=== PATIENT | female | born 1975 | race Hispanic/Latino ===

== ENCOUNTER 2021-03-23 21:08 | Emergency (ER) | payer SELFPAY ==
[2021-03-24 04:05] LABS: Bacteria,Urine 2+ /HPF (Negative); Bilirubin,Urine NEG (Negative); Blood,Urine SM (Negative); Color,Urine Yellow (Yellow); Mucus,Urine FEW /HPF; Urobilinogen,Urine < 2.0 mg/dL (<2.0)
[2021-03-24 04:15] LABS: Protein,Urine <15 mg/dL mg/dL (Negative); WBC,Urine < 1.0 /HPF (0.0-6.0)
[2021-03-24 06:36] VITALS: BP 121/53
--- NOTE | 2021-03-24 06:55 | Emergency Department Report ---
ED Female HPI - General Chief complaint: Urogenital-Female Stated complaint: POSS UTI Time Seen by Provider: 03/24/21 06:12 Source: patient Mode of arrival: Ambulatory Limitations: No Limitations - Related Data Previous Rx's Medication Instructions Recorded Last Taken Type Nitrofurantoin [place]/M-Cryst 100 mg PO Q12HR 7 Days #14 capsule 03/24/21 Unknown Rx [Macrobid CAP] Phenazopyridine [Pyridium] 100 mg PO TID #6 tab 03/24/21 Unknown Rx Allergies Allergy/AdvReac Type Severity Reaction Status Date / Time No Known Allergies Allergy Verified 03/24/21 01:13 ED Review of Systems ROS: Stated complaint: POSS UTI Other details as noted in HPI ED Past Medical Hx - Past Medical History Hx Diabetes: (gestational) - Surgical History Additional Surgical History: c section - Medications Home Medications: Home Medications Medication Instructions Recorded Confirmed Last Taken Type Nitrofurantoin [place]/M-Cryst 100 mg PO Q12HR 7 Days #14 capsule 03/24/21 Unknown Rx [Macrobid CAP] Phenazopyridine [Pyridium] 100 mg PO TID #6 tab 03/24/21 Unknown Rx ED Physical Exam - General Limitations: No Limitations Critical care attestation.: If time is entered above; I have spent that time in minutes in the direct care of this critically ill patient, excluding procedure time. ED Disposition Clinical Impression: UTI (urinary tract infection) Disposition: 01 HOME / SELF CARE / HOMELESS Is pt being admited?: No Does the pt Need Aspirin: No Condition: Stable Instructions: Urinary Tract Infection, Adult, Smra-in-Fawf Additional Instructions: Complete antibiotics as prescribed. Follow up with PCP or Health Department. Prescriptions: Nitrofurantoin [place]/M-Cryst [Macrobid CAP] 100 mg PO Q12HR 7 Days #14 capsule Phenazopyridine [Pyridium] 100 mg PO TID #6 tab Referrals: [facility] Depart [Outside] - 3-5 Days Forms: Work/School Release Form(ED) Time of Disposition: 06:39
--- NOTE | 2021-03-24 07:06 | Emergency Department Report ---
ED Female HPI - General Chief complaint: Urogenital-Female Stated complaint: POSS UTI Time Seen by Provider: 03/24/21 06:12 Source: patient Mode of arrival: Ambulatory Limitations: No Limitations - History of Present Illness Initial comments: 45-year-old obese female presents to the emergency room for 1 week history of dysuria and vaginal itching. She states that she has some mild vaginal discharge for 1 week she is sexually active but no new partner. Last STD evaluation was 2020. She denies any pelvic pain abdominal pain no nausea no vomiting. She currently does not have a PCP as she is recently relocated. She reports has a history of nausea from her GERD. MD Complaint: dysuria Onset/Timin -: week(s) Severity: mild Severity scale (0 -10): 1 Consistency: constant Are you Now?: No Associated Symptoms: dysuria. denies: vaginal bleeding, abdominal pain, fever/chills, hematuria - Related Data Sexually active: Yes Previous Rx's Medication Instructions Recorded Last Taken Type Nitrofurantoin [place]/M-Cryst 100 mg PO Q12HR 7 Days #14 capsule 03/24/21 Unknown Rx [Macrobid CAP] Phenazopyridine [Pyridium] 100 mg PO TID #6 tab 03/24/21 Unknown Rx Allergies Allergy/AdvReac Type Severity Reaction Status Date / Time No Known Allergies Allergy Verified 03/24/21 01:13 ED Review of Systems ROS: Stated complaint: POSS UTI Other details as noted in HPI Comment: All other systems reviewed and negative ED Past Medical Hx - Past Medical History Hx Diabetes: (gestational) - Surgical History Additional Surgical History: c section - Medications Home Medications: Home Medications Medication Instructions Recorded Confirmed Last Taken Type Nitrofurantoin [place]/M-Cryst 100 mg PO Q12HR 7 Days #14 capsule 03/24/21 Unknown Rx [Macrobid CAP] Phenazopyridine [Pyridium] 100 mg PO TID #6 tab 03/24/21 Unknown Rx ED Physical Exam - General Limitations: No Limitations General appearance: alert, in no apparent distress - Head Head exam: Present: atraumatic, normocephalic - Eye Eye exam: Present: normal appearance, PERRL, EOMI - ENT ENT exam: Present: normal external ear exam - Neck Neck exam: Present: normal inspection, full ROM - Respiratory Respiratory exam: Absent: respiratory distress, accessory muscle use - Cardiovascular Cardiovascular Exam: Present: regular rate - Back Exam Back exam: Present: normal inspection, full ROM - Neurological Exam Neurological exam: Present: alert, oriented X3, normal gait - Psychiatric Psychiatric exam: Present: normal affect, normal mood - Skin Skin exam: Present: warm, dry, intact, normal color. Absent: rash ED Course Vital Signs 03/24/21 01:16 Temperature 98.5 F Pulse Rate 83 Respiratory 18 Rate Blood Pressure 121/53 O2 Sat by Pulse 100 Oximetry ED Medical Decision Making - Medical Decision Making 25-year-old -[place] female presents to the emergency room for 1 week history of left lower third molar pain. She states that her her wisdom tooth is giving her problems. She states that she had tried ibuprofen and it brought it down from a 10 to a 7. She states has been using Orajel which was helping but now is no longer helping. She is requesting for referral to a dentist. She denies any fever chills. She denies any trauma. She does state that she is aware that the tooth is coming in at a angle. Urinalysis shows she has 2+ bacteria, large amount of leukoesterase. Patient be treated for urinary tract infection with Macrobid 100 mg p.o. twice daily for 7 days. Patient is referred to the health department for full STD evaluation. Patient can follow-up with a primary care provider as well. Critical care attestation.: If time is entered above; I have spent that time in minutes in the direct care of this critically ill patient, excluding procedure time. ED Disposition Clinical Impression: UTI (urinary tract infection) Disposition: HOME / SELF CARE / HOMELESS Is pt being admited?: No Does the pt Need Aspirin: No Condition: Stable Instructions: Urinary Tract Infection, Adult, [id number] Additional Instructions: Complete antibiotics as prescribed. Follow up with PCP or Health Department. Prescriptions: Nitrofurantoin [place]/M-Cryst [Macrobid CAP] 100 mg PO Q12HR 7 Days #14 capsule Phenazopyridine [Pyridium] 100 mg PO TID #6 tab Referrals: [facility] Depart [Outside] - 3-5 Days Forms: Work/School Release Form(ED)
== END 2021-03-24 10:11 | disposition home or self-care (01) ==
LOC: ED 21:08
DX: N39.0 Urinary tract infection, site not specified (principal); Z98.890 Other specified postprocedural states; Z79.899 Other long term (current) drug therapy
CPT/HCPCS: 81001; 99283